=== PATIENT | male | born 1950 | race Caucasian/White ===

== ENCOUNTER 2020-09-22 12:31 | Emergency (ER) | payer MEDICARE, OTHER ==
[2020-09-22 14:07] LABS: HEMOGLOBIN 14.4 gm/dl (14.0-17.5); RED BLOOD COUNT 4.82 M/UL (4.20-5.50); WHITE BLOOD COUNT 4.5 K/UL (4.5-11.0)
[2020-09-22 14:26] LABS: BUN/CREATININE RATIO 15 (0-10)
== END 2020-09-22 15:00 | disposition home or self-care (01) ==
LOC: ER1 12:31
PROVIDERS: Physician Assistant Medical
DX: U07.1 COVID-19 (principal); J12.82 Pneumonia due to coronavirus disease 2019; E11.9 Type 2 diabetes mellitus without complications; I10 Essential (primary) hypertension; Z79.01 Long term (current) use of anticoagulants; Z79.02 Long term (current) use of antithrombotics/antiplatelets; Z79.899 Other long term (current) drug therapy; E78.5 Hyperlipidemia, unspecified
CPT/HCPCS: 71046; 80053; 82550; 82553; 82728; 83605; 83615; 83735; 83880; 84100; 85025; 85379; 85384; 86140; 87040; 99283; J7030; U0002